=== PATIENT | female | born 1975 | race Caucasian/White ===

== ENCOUNTER 2025-08-08 20:21 | Emergency (ER) | payer SELFPAY ==
[2025-08-08] MEDS ORDERED: Fluconazole 100 MG TAB ONE (22:50)
== END 2025-08-08 23:03 | disposition home or self-care (01) ==
LOC: MADERS 20:21
DX: B35.4 Tinea corporis (principal); F17.210 Nicotine dependence, cigarettes, uncomplicated
CPT/HCPCS: 99282